=== PATIENT | female | born 1955 | race Caucasian/White ===

== ENCOUNTER 2018-11-09 13:52 | Emergency (ER) | payer BC ==
[2018-11-09 14:03] VITALS: BP 174/94
--- NOTE | 2018-11-09 15:00 | UC ---
Abdominal Pain Female HPI - HPI Summary HPI Summary: PT WOKE UP THIS MORNING 2 AM WITH CRAMPY LLQ ABDOMINAL PAIN AND HAD A SOFT STOOL. NOTICED BLOOD ON THE TP WHEN SHE WIPED. NO BLOOD IN THE STOOL OR IN THE WATER. NO FEVER OR URINARY SX. NO NAUSEA/VOMITING. NO CP, SOB, DIZZINESS OR VISUAL DISTURBANCES. NO RECTAL/ANAL PAIN. NO TRAUMA TO THE AREA. - History of Current Complaint Chief Complaint: UCAbdominalPain Stated Complaint: ABDOMINAL PAIN Time Seen by Provider: 11/09/18 14:17 Hx Obtained From: Patient Onset/Duration: Sudden Onset, Lasting Hours, Still Present Severity Initially: Mild Severity Currently: Mild Pain Intensity: 3 Pain Scale Used: 0-10 Numeric Location: Discrete At: LLQ Radiates: No Character: Cramping Aggravating Factor(s): Nothing Alleviating Factor(s): Nothing Associated Signs and Symptoms: Positive: Constipation, Blood in Stool. Negative : Fever, Cough, Chest Pain, Dizzy, Back Pain, Urinary Symptoms, Nausea, Vomiting , Diarrhea Allergies/Adverse Reactions: Allergies Allergy/AdvReac Type Severity Reaction Status Date / Time amoxicillin [From Augmentin] Allergy Difficulty Verified 11/09/18 14:03 Breathing clavulanic acid Allergy Difficulty Verified 11/09/18 14:03 [From Augmentin] Breathing PMH/Surg Hx/FS Hx/Imm Hx - Additional Past Medical History Additional PMH: SEASONAL ALLERGIES - Surgical History Surgical History: Yes Surgery Procedure, Year, and Place: sinus surgery - Family History Known Family History: Positive: None - Social History Alcohol Use: Occasionally Substance Use Type: None Smoking Status (MU): Never Smoked Tobacco Review of Systems All Other Systems Reviewed And Are Negative: Yes Constitutional: Positive: Negative Skin: Positive: Negative Respiratory: Positive: Negative Cardiovascular: Positive: Negative Gastrointestinal: Positive: Abdominal Pain, Other - BLOOD PER RECTUM. Negative : Vomiting, Diarrhea, Nausea Physical Exam Triage Information Reviewed: Yes Appearance: Well-Appearing, No Pain Distress, Well-Nourished Vital Signs: Initial Vital Signs Temp 99.2 F 11/09/18 13:56 Pulse 104 11/09/18 13:56 Resp 18 11/09/18 13:56 BP 174/94 11/09/18 13:56 Pulse Ox 100 11/09/18 13:56 Vital Signs Reviewed: Yes Eyes: Positive: Conjunctiva Clear ENT: Positive: Hearing grossly normal, Pharynx normal, TMs normal Neck: Positive: Supple, Nontender, No Lymphadenopathy Respiratory Exam: Normal Cardiovascular Exam: Normal Abdomen Description: Positive: Nontender, Soft. Negative: CVA Tenderness (R), CVA Tenderness (L), Distended, Guarding Bowel Sounds: Positive: Present Musculoskeletal: Positive: No Edema Neurological: Positive: Alert Psychological: Positive: Age Appropriate Behavior Skin: Negative: Rashes UC Physical Exam Vital Signs On Initial Exam: Initial Vitals Temp Pulse Resp BP Pulse Ox 99.2 F 104 18 174/94 100 11/09/18 13:56 11/09/18 13:56 11/09/18 13:56 11/09/18 13:56 11/09/18 13:56 - Rectal Exam Rectal Exam: Normal Rectal Tone, No Mass, Heme Positive Stool, Hemorrhoids Abd Pain Female Course/Dx - Course Course Of Treatment: PT WITH POSITIVE FOBT AND EXTERNAL HEMORRHOID ON EXAM. SHE LIKELY HAS INFLAMED INTERNAL HEMORRHOIDS WELL. ADVISED PCP AND GI FOLLOW-UP. TO ER WITHOUT FAIL IF SX WORSEN. STATES HER BP GOES UP WHEN SHE IS STRESSED BUT USUALLY RUNS 140S/ 90S. ADVISED THIS IS ALSO TOO HIGH AND SHE NEEDS CLOSE PCP FOLLOW-UP FOR THIS WELL. - Differential Dx/Diagnosis Provider Diagnosis: Hemorrhoids, Blood per rectum Discharge - Sign-Out/Discharge Documenting (check all that apply): Patient Departure All imaging exams completed and their final reports reviewed: No Studies - Discharge Plan Condition: Stable Disposition: HOME Patient Education Materials: Hemorrhoids (ED), Rectal Bleeding (ED) Referrals: [facility] [Provider Group] - 1 Week Bryce Michael NP [Primary Care Provider] - Additional Instructions: YOU HAVE HEMORRHOIDS ON EXAM. THIS IS LIKELY WHAT IS CAUSING THE BLOOD PER RECTUM. FOLLOW-UP WITH GI FOR FURTHER EVALUATION. GO DIRECTLY TO THE ER WITHOUT FAIL IF YOU DEVELOP WORSENING PAIN, LANETTE BLOOD PER RECTUM, DIZZINESS, SHORTNESS OF BREATH, CHEST PAIN, DIZZINESS/LIGHTHEADEDNESS OR ANY OTHER CONCERNING SYMPTOMS. STAY WELL HYDRATED AND FOLLOW A HIGH FIBER DIET. YOU MUST AVOID BEING CONSTIPATED TO PREVENT WORSENING OF HEMORRHOIDS. - Billing Disposition and Condition Condition: STABLE Disposition: Home
[2018-11-10 10:50] LABS: ABS Basophils 0 10^3/ul (0-0.2); ABS Eosinophils 0.2 10^3/ul (0-0.6); ABS Lymphocytes 1.8 10^3/ul (1.0-4.8); ABS Monocytes 0.7 10^3/ul (0-0.8); ABS Neutrophils 10.4 10^3/ul (1.5-7.7); ABS Nucleated RBC 0 10^3/ul; Eosinophil % 1.2 %; Hematocrit 41 % (33-41); Hemoglobin 13.9 g/dL (12.0-16.0); Lymphocyte % 13.8 %; Mean Corpuscular HGB Conc 34 g/dL (31-36); Mean Corpuscular Hemoglobin 33 pg (27-31); Mean Corpuscular Volume 96 fL (80-97); Mean Platelet Volume 8.5 fL (7.4-10.4); Nucleated Red Blood Cells % 0; Platelet Count 233 10^3/uL (150-450); Red Blood Count 4.24 10^6 /uL (3.70-4.87); Red Cell Distribution Width 12 % (10.5-15); White Blood Count 13.2 10^3/uL (3.5-10.8)
[2018-11-10 11:01] LABS: Albumin 4.5 g/dL (3.2-5.2); Calcium 9.5 mg/dL (8.6-10.3); Potassium 3.9 mmol/L (3.5-5.0); Total Bilirubin 0.7 mg/dL (0.2-1.0)
[2018-11-10 11:07] LABS: Albumin/Globulin Ratio 1.7 (1-3); BUN/Creatinine Ratio 13.5 (8-20); EGFR African American 71.3 (>60); EGFR Non-African American 58.9 (>60); Globulin 2.7 g/dL (2-4); Total Protein 7.2 g/dL (6.4-8.9)
--- NOTE | 2018-11-10 15:06 | UC ---
- Progress Note Progress Note: Mildly elevated white count at 13.2. Her exam at her last visit revealed hemorrhoids and abdominal exam appears to be unremarkable. This elevation could be due to a viral infection. Please call pt and insure she has PCP follow up if her symptoms have not resolved. If her symptoms are worse - should go to the ED for further eval. Course/Dx - Diagnoses Provider Diagnoses: Hemorrhoids, Blood per rectum Discharge - Sign-Out/Discharge Documenting (check all that apply): Post-Discharge Follow Up All imaging exams completed and their final reports reviewed: No Studies - Discharge Plan Condition: Stable Disposition: HOME Patient Education Materials: Hemorrhoids (ED), Rectal Bleeding (ED) Referrals: [facility] [Provider Group] - 1 Week Bryce Michael NP [Primary Care Provider] - Additional Instructions: YOU HAVE HEMORRHOIDS ON EXAM. THIS IS LIKELY WHAT IS CAUSING THE BLOOD PER RECTUM. FOLLOW-UP WITH GI FOR FURTHER EVALUATION. GO DIRECTLY TO THE ER WITHOUT FAIL IF YOU DEVELOP WORSENING PAIN, LANETTE BLOOD PER RECTUM, DIZZINESS, SHORTNESS OF BREATH, CHEST PAIN, DIZZINESS/LIGHTHEADEDNESS OR ANY OTHER CONCERNING SYMPTOMS. STAY WELL HYDRATED AND FOLLOW A HIGH FIBER DIET. YOU MUST AVOID BEING CONSTIPATED TO PREVENT WORSENING OF HEMORRHOIDS. - Billing Disposition and Condition Condition: STABLE Disposition: Home
== END 2018-11-09 15:00 | disposition home or self-care (01) ==
LOC: UCEAST 13:52
DX: K62.5 Hemorrhage of anus and rectum (principal); K64.4 Residual hemorrhoidal skin tags; K59.00 Constipation, unspecified; D72.829 Elevated white blood cell count, unspecified; Z88.1 Allergy status to other antibiotic agents; Z88.0 Allergy status to penicillin
CPT/HCPCS: 36415; 80053; 85025; 99211; G0463